=== PATIENT | female | born 1995 | race Caucasian/White ===

== ENCOUNTER 2017-01-09 18:46 | Emergency (ER) | payer OTHER ==
[~2017-01-09] VITALS: Ht 167.6 cm; Wt 87.0 kg
[~2017-01-09 18:46] MED LIST: CETI10CA PO; DIPH25CA6 PO
[2017-01-09 19:34] VITALS: Ht 167.6 cm; Wt 87.0 kg
[2017-01-09] MEDS ORDERED: ERYTOPOI BOTH EYES (21:55)
[2017-01-09] MEDS ORDERED: AMO500 PO (21:55)
[2017-01-09] MEDS ORDERED: IBUP-1542 PO (21:55)
[2017-01-09] MEDS ORDERED: ACET325T33 PO (21:55)
[2017-01-09] MEDS ORDERED: ACETAMINOPHEN 325 MG TAB PO ONE (22:00)
--- NOTE | 2017-01-09 22:09 | ERD ---
ER Documentation Chief Complaint Date/Time DATE: 01/09/17 TIME: 22:[address], bilateral ear pain, fever n/v started yesterday HPI Patient is a 21-year-old female with no medical problems who presents with multiple complaints. She has a sore throat, fever, abdominal pain, vomiting, and headache. She says that she also has conjunctivitis with eye redness bilaterally. She said the symptoms started yesterday but were worse today. She tried Advil this morning for her fever. She says that her primary doctor is Dr. Jeovanny Phipps. She has not called the doctor as of yet. ROS All systems reviewed and are negative except as per history of present illness. Medications Home Meds Active Scripts Acetaminophen* (Tylenol*) 325 Mg Tablet, 2 TAB PO Q8 Y for PAIN AND OR ELEVATED TEMP, #20 TAB Prov:DANN GONZALEZ MD 01/09/17 Ibuprofen* (Motrin*) 600 Mg Tab, 600 MG PO Q8, #30 TAB Prov:DANN GONZALEZ MD 01/09/17 Erythromycin* (Erythromycin* Ophthalmic) 1 Applic Oint, 1 APPLIC BOTH EYES QID for 7 Days, EA Prov:DANN GONZALEZ MD 01/09/17 Amoxicillin* (Amoxicillin*) 500 Mg Cap, 500 MG PO TID for 10 Days, CAP Prov:DANN GONZALEZ MD 01/09/17 Cetirizine Hcl* (Zyrtec*) 10 Mg Capsule, 10 MG PO DAILY, #10 TAB.CHEW Prov:LORENA GONZALEZ PA-C 03/07/16 Diphenhydramine Hcl (Benadryl) 25 Mg Cap, 25 MG PO BID for 5 Days, CAP Prov:LORENA GONZALEZ PA-C 03/07/16 Allergies Allergies: Coded Allergies: peach (Verified Allergy, Intermediate, SWELLING, 01/09/17) Uncoded Allergies: SEAFOOD (Allergy, Intermediate, 01/09/17) PMhx/Soc Medical and Surgical Hx: pt denies Surgical Hx Hx Respiratory Disorders: Yes (ASTHMA) Hx Miscellaneous Medical Probl: Yes (asthma) Hx Alcohol Use: No Hx Substance Use: No Hx Tobacco Use: No Smoking Status: Never smoker FmHx Family History: diabetes Physical Exam Vitals Vital Signs Date Time Temp Pulse Resp B/P Pulse Ox O2 Delivery O2 Flow Rate FiO2 01/09/17 22:02 102.3 01/09/17 19:34 102.0 115 18 136/78 96 Physical Exam Const: Mild distress Head: Atraumatic Eyes: Redness of the sclera bilaterally ENT: Normal External Ears, Nose and Mouth. Neck: Large erythematous tonsils bilaterally without stridor over the neck Resp: Clear to auscultation bilaterally Cardio: Regular rate and rhythm, no murmurs Abd: Soft, non tender, non distended. Normal bowel sounds Skin: No petechiae or rashes Back: No midline or flank tenderness Ext: No cyanosis, or edema Neur: Awake and alert Psych: Normal Mood and Affect Results 24 hrs Current Medications Medications (Trade) Dose Ordered Sig/Monalisa Route PRN Reason Start Time Stop Time Status Last Admin Dose Admin Acetaminophen (Tylenol Tab) 650 mg ONCE ONCE PO 01/09/17 22:00 01/09/17 22:01 DC 01/09/17 22:00 Procedures/MDM Patient is a 21-year-old female who presents with what appears to be an acute pharyngitis. I believe she also has conjunctivitis. The patient will be given a prescription for amoxicillin and erythromycin eyedrops. The patient will be given a prescription for Tylenol and Motrin which she can alternate for fever or pain. She can follow-up with her primary doctor within 24-48 hours for reevaluation. At this point I doubt peritonsillar abscess, retropharyngeal abscess, or epiglottitis. I doubt other serious bacterial infection such as meningitis. I believe outpatient management is appropriate. The patient is well-appearing upon discharge. She was given Tylenol in the emergency department for her fever. Departure Diagnosis: Primary Impression: Conjunctivitis Conjunctivitis type: acute Acute conjunctivitis type: unspecified Laterality: bilateral Qualified Code: H10.33 - Acute conjunctivitis of both eyes, unspecified acute conjunctivitis type Additional Impressions: Pharyngitis Pharyngitis/tonsillitis etiology: unspecified etiology Qualified Code: J02.9 - Pharyngitis, unspecified etiology Sore throat Condition: Fair Patient Instructions: Conjunctivitis Caused by Infection, Pharyngitis, Strep ( Presumed) Referrals: JEOVANNY PHIPPS MD (PCP) Additional Instructions: Call your primary care doctor TOMORROW for an appointment during the next 1-2 days.See the doctor sooner or return here if your condition worsens before your appointment time. DANN GONZALEZ MD Jan 09, 2017 22:09
[2017-01-09 22:41] VITALS: TEMP 100.9
== END 2017-01-09 22:41 | disposition home or self-care (01) ==
LOC: FTE 18:46
DX: H10.33 Unspecified acute conjunctivitis, bilateral (principal); J45.909 Unspecified asthma, uncomplicated
CPT/HCPCS: Z7502; Z7610; 99284

== ENCOUNTER 2017-06-27 21:29 | Emergency (ER) | payer OTHER ==
[~2017-06-27] VITALS: Ht 162.6 cm; Wt 92.0 kg
[~2017-06-27 21:29] MED LIST changes: +ACET325T33 PO; +AMOX500C2 PO; +ERYTOPOI BOTH EYES; +IBUP-1542 PO
[2017-06-27 21:35] VITALS: Ht 162.6 cm; Wt 92.0 kg
[2017-06-27] MEDS ORDERED: DIPHENHYDRAMINE 50 MG CAP PO ONE (22:00)
[2017-06-27] MEDS ORDERED: DEXAMETHASONE 10 MG/ML 1 ML INJ IM ONE (22:00)
[2017-06-27] MEDS ORDERED: METOCLOPRAMIDE 10 MG TAB PO ONE (22:30)
[2017-06-27] MEDS ORDERED: ALPRAZOLAM 0.25 MG TAB PO ONE (23:00)
[2017-06-27] MEDS ORDERED: BEN50 PO (23:07)
--- NOTE | 2017-06-27 23:18 | ERD ---
ER Documentation Chief Complaint Date/Time DATE: 06/27/17 TIME: 23:11 Chief Complaint allergic reaction after eating fish, ear numbness, facial itching HPI 21-year-old female complaining of allergic reaction after eating possible seafood earlier this evening. Patient states she was eating a dumpling. She has eaten these dumplings in the past without any problems. Patient states she feels itching in her ears and throat. Patient feels her tongue is swelling. Denies shortness of breath. Has not taken medications for symptoms. Denies chest pain. Denies vomiting. Medical history: Asthma. Medication allergies: Zofran. Social history: Denies. Surgical history: Denies ROS All systems reviewed and are negative except as per history of present illness. Medications Home Meds Active Scripts Diphenhydramine Hcl* (Benadryl*) 50 Mg Cap, 50 MG PO Q6 Y for ALLERGIC REACTION , #30 CAP Prov:AZRA OLSON PA-C 06/27/17 Acetaminophen* (Tylenol*) 325 Mg Tablet, 2 TAB PO Q8 Y for PAIN AND OR ELEVATED TEMP, #20 TAB Prov:DANN GONZALEZ MD 01/09/17 Ibuprofen* (Motrin*) 600 Mg Tab, 600 MG PO Q8, #30 TAB Prov:DANN GONZALEZ MD 01/09/17 Erythromycin* (Erythromycin* Ophthalmic) 1 Applic Oint, 1 APPLIC BOTH EYES QID for 7 Days, EA Prov:DANN GONZALEZ MD 01/09/17 Amoxicillin* (Amoxicillin*) 500 Mg Cap, 500 MG PO TID for 10 Days, CAP Prov:DANN GONZALEZ MD 01/09/17 Cetirizine Hcl* (Zyrtec*) 10 Mg Capsule, 10 MG PO DAILY, #10 TAB.CHEW Prov:LORENA GONZALEZ PA-C 03/07/16 Diphenhydramine Hcl (Benadryl) 25 Mg Cap, 25 MG PO BID for 5 Days, CAP Prov:LORENA GONZALEZ PA-C 03/07/16 Allergies Allergies: Coded Allergies: peach (Verified Allergy, Intermediate, SWELLING, 01/09/17) Fish Containing Products (Verified Allergy, Unknown, 06/27/17) ondansetron (Verified Allergy, Unknown, 06/27/17) PMhx/Soc Medical and Surgical Hx: pt denies Surgical Hx History of Surgery: No Anesthesia Reaction: No Hx Neurological Disorder: No Hx Respiratory Disorders: Yes (Asthma) Hx Cardiac Disorders: No Hx Psychiatric Problems: No Hx Miscellaneous Medical Probl: No Hx Alcohol Use: No Hx Substance Use: No Hx Tobacco Use: No Smoking Status: Never smoker Physical Exam Vitals Vital Signs Date Time Temp Pulse Resp B/P Pulse Ox O2 Delivery O2 Flow Rate FiO2 06/27/17 22:29 100 Nasal Cannula 2.0 06/27/17 22:28 Nasal Cannula 2 06/27/17 21:35 98.7 110 20 140/93 100 Physical Exam GENERAL: The patient is well-appearing, well-nourished, in no acute distress HEENT: Atraumatic. Conjunctivae are pink. Pupils equal, round, and reactive to light. There is no scleral icterus. Tympanic membranes clear bilaterally. Oropharynx clear. No nystagmus or photophobia. NECK: C-spine is soft and supple. There is no meningismus. There is no cervical lymphadenopathy. No JVD. No bruits. No goiter. CHEST: Clear to auscultation bilaterally. There are no rales, wheezes or rhonchi. HEART: Regular rate and rhythm. No murmurs, clicks, rubs or gallops. No S3 or S4. SKIN: No rashes Results 24 hrs Current Medications Medications (Trade) Dose Ordered Sig/Monalisa Route PRN Reason Start Time Stop Time Status Last Admin Dose Admin Diphenhydramine HCl (Benadryl) 50 mg ONCE ONCE PO 06/27/17 22:00 06/27/17 22:01 DC 06/27/17 21:58 Dexamethasone (Decadron) 10 mg ONCE ONCE IM 06/27/17 22:00 06/27/17 22:01 DC 06/27/17 21:57 Metoclopramide HCl (Reglan) 5 mg ONCE ONCE PO 06/27/17 22:30 06/27/17 22:31 DC 06/27/17 22:34 Alprazolam (Xanax) 0.5 mg ONCE ONCE PO 06/27/17 23:00 06/27/17 23:01 DC 06/27/17 23:00 Procedures/MDM ER Course: PO benadryl, IM decadron and PO Xanax given in ED MDM: 21 yr old female complaining of allergic reaction. There is no facial swelling seen on exam and patient's oxygen saturations 100% on room air. Patient is talking without difficulty. There is no abnormal findings seen on exam. Patient is given medication and monitored for an hour. Patient has not had any abnormal findings and symptoms have stabilized. On reevaluation states that she is feeling much better and is ready to go home. Patient is discharged with strict ER precautions and told to follow-up with primary care within 1-2 days for close evaluation. All questions answered at discharge Departure Diagnosis: Primary Impression: Allergic reaction Condition: Stable Patient Instructions: Allergic Reaction, Other (General) Referrals: BRITTANY BANSAL MD (PCP) Additional Instructions: FOLLOW UP WITH YOUR PRIMARY CARE PHYSICIAN TOMORROW.Return to this facility if you are not improving as expected. AZRA OLSON PA-C Jun 27, 2017 23:18
[2017-06-27 23:35] VITALS: BP 127/86; PULSE 71; RESP 18; TEMP 98.5
== END 2017-06-27 23:35 | disposition home or self-care (01) ==
LOC: FTE 21:29
DX: L29.9 Pruritus, unspecified (principal); J45.909 Unspecified asthma, uncomplicated
CPT/HCPCS: 96372; J1100; Z7502; Z7610

== ENCOUNTER 2018-03-21 01:44 | Emergency (ER) | END 2018-03-21 03:43 | disposition home or self-care (01) ==

== ENCOUNTER 2018-04-21 23:53 | Emergency (ER) | END 2018-04-22 06:00 | disposition home or self-care (01) ==